=== PATIENT | female | born 1960 | race Caucasian/White ===

== ENCOUNTER 2016-12-23 08:52 | Outpatient (CLI) | END 2016-12-23 08:53 | disposition home or self-care (01) | LOC: AMBL 08:52 | PROVIDERS: ATTEND Emergency Medicine | DX: F19.239 Other psychoactive substance dependence with withdrawal, unspecified (principal); R41.0 Disorientation, unspecified; R52 Pain, unspecified; R47.81 Slurred speech; R25.1 Tremor, unspecified; M79.1 Myalgia; H57.04 Mydriasis; F41.9 Anxiety disorder, unspecified; M54.5 Low back pain ==

== ENCOUNTER 2017-06-19 22:00 | Outpatient (CLI) | END 2017-06-19 22:01 | disposition home or self-care (01) | LOC: AMBL 22:00 | PROVIDERS: ATTEND Family Medicine | DX: R07.9 Chest pain, unspecified (principal); R41.82 Altered mental status, unspecified; R00.0 Tachycardia, unspecified ==